=== PATIENT | male | born 1995 ===

== ENCOUNTER 2020-03-16 23:00 | Emergency (ER) | payer OTHER, SELFPAY ==
[2020-03-16] MEDS ORDERED: MORPHINE 4 MG/ML SYR ONE (23:47)
[2020-03-16] MEDS ORDERED: ONDANSETRON 4 MG/2 ML VIAL ONE (23:47)
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
[2020-03-17 02:25] VITALS: BP 133/88; TEMP 98.9; O2SAT 98
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
== END 2020-03-17 02:20 | disposition home or self-care (01) ==
LOC: ER 23:00
DX: S16.1XXA Strain of muscle, fascia and tendon at neck level, initial encounter (principal); V86.55XA Driver of 3- or 4- wheeled all-terrain vehicle (ATV) injured in nontraffic accident, initial encounter
CPT/HCPCS: 70450; 71250; 72125; 96372; 99284; J2405